=== PATIENT | female | born 1970 | race Two or more races ===

== ENCOUNTER 2018-05-16 12:32 | Emergency (ER) | payer OTHER ==
[~2018-05-16] VITALS: Ht 142.2 cm; Wt 89.4 kg
[2018-05-16 12:50] VITALS: BP 92/43
== END 2018-05-16 13:45 | disposition home or self-care (01) ==
LOC: EDBD 12:32 → ER 12:32
DX: Q90.9 Down syndrome, unspecified (principal); E03.9 Hypothyroidism, unspecified; Z76.0 Encounter for issue of repeat prescription

== ENCOUNTER 2018-07-21 12:21 | Emergency (ER) | payer OTHER ==
[~2018-07-21] VITALS: Ht 162.6 cm; Wt 132.9 kg
[2018-07-21 13:15] VITALS: BP 113/70
[2018-07-21] MEDS ORDERED: MECLIZINE HCL 25 MG TAB PO ONE (13:15)
[2018-07-21 13:21] LABS: Basophils # (auto) 0.1 uL; Eosinophils # (auto) 0.2 uL; Lymphocytes # (auto) 1.7 uL; Monocytes # (auto) 0.6 uL; Neutrophils # (auto) 3.4 uL
[2018-07-21 13:23] LABS: Basophils % (auto) 1.6 % (0.0-2.0); Eosinophils % (auto) 3.5 % (0.0-7.0); Hemoglobin 14.6 g/dL (12.2-16.2); Mean Corpuscular Hemoglobin 34.6 pg (28.0-32.0); Mean Corpuscular Volume 101.8 fL (80.0-100.0); Monocytes % (auto) 10.1 % (0.0-12.0); Neutrophils % (auto) 56.8 % (37.0-80.0); Nucleated Red Blood Cells % 0.1 %; Platelet Count (auto) 228 10^3/uL (140-450); Red Blood Cells 4.22 10^6/uL (4.0-5.20); Red Cell Distribution Width 13.9 % (11.8-14.3); White Blood Cell 5.9 10^3/uL (4.4-10.8)
[2018-07-21 13:34] LABS: BUN/Creatinine Ratio 22.7; Calcium 8.7 mg/dL (8.5-10.1); Potassium 4.5 mmol/L (3.5-5.1)
[2018-07-21 13:37] LABS: Bilirubin, Total 0.1 mg/dL (0.2-1.0); Total Protein 7.3 g/dL (6.4-8.2)
== END 2018-07-21 14:52 | disposition home or self-care (01) ==
LOC: ER 12:21
DX: R42 Dizziness and giddiness (principal); E07.9 Disorder of thyroid, unspecified
CPT/HCPCS: 36415; 70450; 80053; 85025; 93005; 99284; J8597